=== PATIENT | female | born 1935 | race Caucasian/White ===

== ENCOUNTER 2019-06-12 09:08 | Inpatient (IN) ==
[2019-06-12] MEDS ORDERED: SALINE LOCK IV FLUID XX ONE (11:51)
[2019-06-12] MEDS ORDERED: TYLENOL PO PRN (11:57)
[2019-06-12] MEDS ORDERED: MIRALAX PO PRN (11:57)
[2019-06-12] MEDS ORDERED: ASTELIN NASAL SPRAY NAS PRN (11:57)
[2019-06-12] MEDS ORDERED: MERREM 500 MG in NS 50 ML IV SCH (14:00)
[2019-06-12 14:37] LABS: URINE SOURCE CLEAN CATCH
[2019-06-12 15:03] LABS: BILIRUBIN URINE NEGATIVE (NEGATIVE); BLOOD URINE NEGATIVE (NEGATIVE); COLOR YELLOW; GLUCOSE URINE NEGATIVE (NEGATIVE); KETONE URINE NEGATIVE (NEGATIVE); LEUKOCYTES URINE SMALL (NEGATIVE); NITRITE URINE NEGATIVE (NEGATIVE); PROTEIN URINE NEGATIVE (NEGATIVE); SP GRAVITY URINE 1.005; TURBIDITY URINE CLEAR (CLEAR); UROBILINOGEN URINE NORMAL (NORMAL)
[2019-06-12 15:04] LABS: UR EPITHELIAL CELLS <10 /HPF (<10); URINE BACTERIA NEGATIVE /HPF; URINE RBC <10 /HPF (<10); URINE WBC <10 /HPF (<10)
[2019-06-12] MEDS: NS 1,000 ML IV PRN (15:32)
[2019-06-12] MEDS: LOVENOX SUBQ SCH (15:33)
[2019-06-12] MEDS: MAXIPIME 2 GM in NS 100 ML IV SCH (18:25)
[2019-06-12] MEDS: PRAVACHOL PO SCH (20:26)
[2019-06-12] MEDS: KLOR-CON PO SCH (20:26)
[2019-06-12] MEDS: VITAMIN D PO SCH (20:27)
--- NOTE | 2019-06-12 21:12 | HISTORY AND PHYSICAL ---
INDICATION FOR ADMISSION: Multidrug resistant UTI. ADMITTING PHYSICIAN: Dr. Efrain Del Rio. ATTENDING PHYSICIAN: Dr. Efrain Del Rio. CONSULTING PHYSICIAN: Dr. Rosa Hernandez, Infectious Disease. HISTORY OF PRESENT ILLNESS: Ms. Rapp is a pleasant 84-year-old female, patient of mine, with past medical history consistent with generalized osteoarthritis, history of nonspecific elevated liver enzymes/transaminitis, diaphragmatic hernia, osteopenia, reflux, idiopathic peripheral neuropathy, atherosclerotic peripheral vascular disease, chronic venous hypertension, hypertension, dyslipidemia, hypothyroidism, and diabetes with renal involvement. She has a history of recurrent urinary tract infections manifested by lower abdominal urgency, frequency, back pain, and positive cultures. Over the past 3 to 4 months, she has been noted to have Escherichia coli which is ESBL positive in January 2019. The patient presented in early March 2019 complaining of dysuria and frequency. Urine culture was noted to be negative. Patient reporting urine urgency and frequency with 4+ bacteria in early June, culture returning as E coli positive, multidrug resistant, and resistant to the following agents: Ampicillin, sulbactam, cefazolin, ceftriaxone, cefuroxime, ciprofloxacin, gentamicin, Levaquin, tobramycin, and Bactrim. She was treated with Macrobid 100 mg twice daily and a repeat culture failed to demonstrate clearing; therefore, she is admitted to the internal medicine service for IV antibiotics and infectious disease consultative opinion. ALLERGIES: Levaquin, Nalfon, Pepcid, Reglan, and Tenex. MEDICATIONS ON ADMISSION: Include: 1. Atrovent nasal spray p.r.n. 2. Aspirin 81 mg once daily. 3. Vitamin D 2000 international units daily. 4. Senokot 8.6 two p.o. at bedtime p.r.n. 5. Pravachol 20 mg p.o. daily. 6. Exforge 5/160 one p.o. daily. 7. Loratadine 10 mg once daily. 8. Synthroid 100 mcg once daily. 9. Pantoprazole 40 mg once daily. 10. Klor-Con 20 mEq 1 p.o. b.i.d. 11. UTI prophylaxis per Urology. 12. Bactrim 400/80 one p.o. every other day. 13. Carafate 1 g t.i.d. 14. B12 supplement over the counter 500 mcg. FAMILY HISTORY: Father in 1975 secondary to blood clot. Mother in 2003, old age with congestive heart failure history. She is an only child. SOCIAL HISTORY: Status: Patient is after 49 years of marriage in 2009. She has 1 adult child, a daughter 55 years old, with no grandchildren. 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 She is a nonsmoker and a remote history of alcohol use; none at this time. Patient's last annual wellness visit noted to be January 2018 and last annual exam August 2018.. REVIEW OF SYSTEMS: A 12 point review of systems is unremarkable except that noted within the HPI above. Patient's last admission noted to be November 2017 for UTI with group B strep, elevated white blood cell count, and orthostatic hypotension, suggestive of SIRS. Prior to that, she was admitted in January 2013 for accelerated hypertension, chest pain. Historical urine cultures demonstrating ESBL positive E coli in June 2018, with multiple other cultures including Pseudomonas and Klebsiella. PHYSICAL EXAMINATION: VITAL SIGNS: On admission, blood pressure 149/64, respirations at 20, T-max at 98.4 degrees, weighing 181 pounds. HEENT: Normocephalic, atraumatic. Pupils are equal and reactive to light and accommodation. NECK: Soft and supple, without lymphadenopathy or bruits. CARDIOVASCULAR: Regular rate and rhythm, without murmurs, gallops, or rubs. LUNGS: Clear. ABDOMEN: Soft. EXTREMITIES: Benign, with the presence of chronic venous hypertension. NEUROLOGIC: Cranial nerves 2 through 12 are grossly intact. Patient is alert and oriented x3 without any cognitive deficiencies. LABORATORY: Obtained from this morning at office visit: There is a culture that is currently pending. No additional laboratory at this time. IMPRESSION: An 84-year-old with history of recurrent urinary tract infection, historical extended- spectrum beta lactamase positive as recently as January 2019 with Escherichia coli, and then a recent Escherichia coli culture which is multidrug resistant dated 06/04/2019, a copy of which will be provided and placed on the chart for infectious disease review. I have spoken with Infectious Disease who agrees, pending further evaluation of bladder with ultrasound and followup on urine culture which is outstanding, that initiation of meropenem 1 g intravenously every 8 hours is reasonable. Caution is to be exercised in asymptomatic positive cultures. This continues to be our clinical practice. I reiterated to the patient at the bedside this is why we essentially required that she come in and be evaluated for urinary tract infection with a urine specimen and a culture that often follows. Considering the multidrug resistant nature of this organism, failure to respond and persistence of symptoms, she is admitted to the Internal Medicine Clinic, started on intravenous broad-spectrum antibiotic coverage, with interval followup as discussed. Total time spent on the floor and at the bedside and on dictation: Approximately 45 minutes. cc: Efrain Del Rio DO
--- NOTE | 2019-06-12 22:17 | INFECTIOUS DISEASE CONSULT REP ---
DATE: 06/12/2019 CONCLUSION: The patient is admitted with a symptomatic urinary tract infection. RECOMMENDATIONS: I have discontinued meropenem and placed the patient instead on cefepime. A bladder scan was done as soon as the patient finished voiding and it turns out that she had a postvoid residual urine of 296 mL of urine. I should mention that since she came to the hospital, she had voided approximately 1700 mL of urine, but she still had a postvoid residual of 296 mL of urine. I suggest using vaginal estrogen cream and for the patient to sit for a long time on the toilet until she feels she thoroughly emptied her bladder. DISCUSSION: The patient tells me that when she has urgency to void and voiding frequently, she usually has a urinary tract infection. She further tells me that after the infection is treated, then the sense of urgency and frequency disappears. Today, when she came in, her urinalysis showed white cells, but no bacteria, and as mentioned above, the bladder scan showed a postvoid residual urine of 296 mL. The patient further tells me that when she sits on the toilet for a long time she feels she thoroughly empties her bladder. Also the patient said when she puts estrogen cream on her vagina she does not get urinary tract infections. PAST MEDICAL HISTORY/REVIEW OF SYSTEMS: Eyes/ears: The patient has decreased vision, but her hearing is good. Neck: No stiffness. Respiratory: No cough or shortness of breath. Cardiac: No chest pain or palpitations. Gastrointestinal: The patient has a problem with constipation. The patient does have gastroesophageal reflux. Genitourinary: See present illness. Bones/joints/muscles: The patient does have low back pain which seems to be independent of whether or not she has a urinary tract infection. She is not complaining of any muscle aches. Neurologic: No seizures. No recent loss of motor or sensory function. OBSTETRICAL/GYNECOLOGIC HISTORY: She is a 1, para 1, AB 0. She has had a hysterectomy. PREVIOUS HOSPITALIZATIONS AND OPERATIONS: She has had a labor and delivery, a hysterectomy, and a bladder tack. She has also had a cholecystectomy. MEDICAL DISEASES: Positive for diabetes mellitus, hyperlipidemia, hypothyroidism, and gastroesophageal reflux disease. INFECTIOUS DISEASE HISTORY: Positive for urinary tract infections which are symptomatic. FAMILY HISTORY: Positive for diabetes mellitus and cancer. SOCIAL HISTORY: The patient lives in [place]. She is a . She lives alone. She does not have any pets at home. She does not smoke cigarettes or abuse drugs. She occasionally drinks wine. ALLERGIES: The chart lists allergies to Levaquin, Reglan, steroids, and Pepcid. The Levaquin adverse reaction is anaphylaxis. HOME MEDICATIONS: Include the following: Exforge, Astelin spray, fluconazole, fluticasone, Synthroid, loratadine, Mobic, Protonix, and pravastatin. PHYSICAL EXAMINATION: Vital Signs: Temperature is 98.4 degrees, pulse 77, respirations 20, blood pressure 149/64. The patient is 5 feet 8 inches tall and weighs 181 pounds. General: This is an obese, but otherwise healthy-appearing, elderly female. She is in no acute distress. Head/eyes/ears/nose/throat: She can hear my spoken words and see near objects. There is no drainage from the nose or ears. Neck: No meningismus. Lungs: Clear to auscultation. Cardiovascular: Regular heart rate. Abdomen: Soft and nontender. There is no bilateral CVA tenderness either. Neurologic: The patient is alert. She ambulates without difficulty. Her memory as regarding her medical history is intact. She carries on a coherent conversation. Integument: No rash. Thank you for the consult. cc: MD Efrain Langley, DO GAIL
[2019-06-13] MEDS: MAXIPIME 2 GM in NS 100 ML IV SCH ×2 (05:06→18:06)
[2019-06-13] MEDS: SYNTHROID PO SCH (06:08)
[2019-06-13] MEDS: HYDROCHLOROTHIAZIDE PO SCH (10:13)
[2019-06-13] MEDS: KLOR-CON PO SCH ×2 (10:13→20:11)
[2019-06-13] MEDS: ASPIRIN PO SCH (10:13)
[2019-06-13] MEDS: CLARITIN PO SCH (10:13)
[2019-06-13] MEDS: MOBIC PO SCH (10:14)
[2019-06-13] MEDS: FLONASE NAS SCH (10:14)
[2019-06-13] MEDS: PROTONIX PO SCH (10:14)
[2019-06-13] MEDS: EXFORGE 5/160 PO SCH (10:15)
[2019-06-13] MEDS: LOVENOX SUBQ SCH (18:06)
[2019-06-13] MEDS: PRAVACHOL PO SCH (20:11)
[2019-06-13] MEDS: VITAMIN D PO SCH (20:11)
--- NOTE | 2019-06-13 20:44 | INFECTIOUS DISEASE PROGRESS NO ---
DATE: 06/13/2019 PRESENT ILLNESS: History of recurrent urinary tract infections. MEDICATIONS: Currently, the patient is on cefepime. PHYSICAL EXAMINATION: Vital Signs: Temperature is 97.6 degrees, pulse 69, respirations 16, blood pressure 139/64. General: This is a healthy-appearing, elderly female. She is in no acute distress. Head, Eyes, Ears, Nose, Throat: She can hear my spoken words and see near objects. She does not have any white coating on her tongue. Neck: No pain with movement. Lungs: Clear to auscultation. Cardiovascular: Heart rate is regular. Abdomen and flanks: The abdomen is soft. It is not tender and she does not have any bilateral CVA tenderness either. Neurologic: The patient is alert. She can ambulate without difficulty. There is no tremor. LAB AND X-RAY: There is no radiographic study. The patient's urine culture was negative at 24 hours. Urinalysis showed a small amount of white cells and no bacteria. ASSESSMENT AND PLAN: I discussed with the patient about her history of recurrent urinary tract infections. As I mentioned yesterday, she told me that if she sits for a prolonged time on the toilet, she feels that she totally empties her bladder. Yesterday, she sat on the toilet, but it was not for a prolonged time, and when we bladder scanned her, she had a post void residual of 296 mL. The patient also told me that when she used estrogen cream in the vaginal area, she did not have urinary tract infections either. Therefore, my suggestion is that the patient should try to sit down every 4 hours on the toilet, and she should sit for a prolonged time, and that way, hopefully she will not have a postvoid residual urine of any amount. Also, I think it would be best if she used estrogen cream vaginally. If the above works for the patient so that she does not have any recurrent urinary tract infections, she could possibly try to go every 6 hours without sitting on the toilet, but it would probably be best if she continued to do it every 4 hours. As regarding the vaginal estrogen cream, I am uncertain if she uses it, does she need to have a Pap smear taken vaginally. If she does need one, I do not know how often it should be. COMORBIDITIES: The patient is elderly. She does have diabetes, but from my understanding, her diabetes is very well controlled, even without medication, and it sounds like the postvoid residual we got last night at 296 only occurred because the patient did not sit long enough on the toilet, and that she really does not have urinary retention of any amount. cc: MD Efrain Langley, DO
[2019-06-14] MEDS: NS 1,000 ML IV PRN (01:44)
[2019-06-14] MEDS: SYNTHROID PO SCH (06:14)
[2019-06-14 07:54] VITALS: BP 148/69
[2019-06-14 08:27] LABS: AGAP 12; BUN 9 mg/dL (8-22); CALCIUM 8.1 mg/dL (8.8-10.2); CHLORIDE 99 mmol/L (98-107); COSMO 268; CREATININE 0.6 mg/dL (0.5-0.9); ESTIMATED GFR > 60; GLUCOSE 88 mg/dL (70-104); POTASSIUM 3.1 mmol/L (3.5-5.1); SODIUM 135 mmol/L (136-145); TCO2 24 mmol/L (25-35)
[2019-06-14 08:29] LABS: HEMATOCRIT 39.7 % (37.0-47.0); HEMOGLOBIN 13.5 g/dL (12.0-16.0); RBC 4.53 XMIL (4.2-5.4); WBC 4.66 X1000 (4.8-10.8)
[2019-06-14 08:30] LABS: BASO# 0.07 X1000 (0.0-0.2); BASO% 1.5 % (0.0-0.8); EOS# 0.38 X1000 (0.0-0.7); EOS% 8.2 % (0.0-10.0); LYMPH# 1.24 X1000 (1.2-3.4); LYMPH% 26.6 % (20.5-51.1); MCH 29.8 PG (27-31); MCV 87.6 FL (81-99); MONO# 0.73 X1000 (0.11-0.59); MONO% 15.7 % (1.7-9.3); MPV 10.1 FL (7.4-10.4); NEUT# 2.24 X1000 (1.4-6.5); PLT 232 X1000 (130-400); RDW 13.8 % (11.5-14.5)
[2019-06-14] MEDS: ASPIRIN PO SCH (09:14)
[2019-06-14] MEDS: HYDROCHLOROTHIAZIDE PO SCH (09:14)
[2019-06-14] MEDS: MOBIC PO SCH (09:15)
[2019-06-14] MEDS: KLOR-CON PO SCH (09:15)
[2019-06-14] MEDS: EXFORGE 5/160 PO SCH (09:15)
[2019-06-14] MEDS: PROTONIX PO SCH (09:15)
[2019-06-14] MEDS: CLARITIN PO SCH (09:16)
[2019-06-14] MEDS: FLONASE NAS SCH (09:17)
--- NOTE | 2019-06-15 00:36 | DISCHARGE SUMMARY ---
ADMISSION DATE: 06/12/2019 DISCHARGE DATE: 06/14/2019 DISCHARGE DIAGNOSES: 1. Atonic bladder. 2. Hypokalemia. 3. Personal history of recurrent urinary tract infection. 4. Urinary retention with incomplete bladder emptying. CONSULTATIONS: Including Infectious Disease for history of ESBL positive E. coli. PROCEDURES: Postvoid residual of 296 mL suggestive of atonic bladder with incomplete emptying. HOSPITAL COURSE: Ms. Rapp was admitted from the Internal Medicine Clinic for a presumptive UTI with recent history of E coli positive culture with positive ESBL findings. She had been treated earlier in the week with incomplete resolution of urinary tract infection and multidrug resistant findings therefore she was admitted to the internal medicine service, started on broad- spectrum antibiotics and Infectious Disease was consulted. Her urine culture from the clinic returned as negative. IV antibiotics were stopped. Patient was instructed that this was most consistent with urinary retention with incomplete bladder emptying and that she would be a good candidate for self-catheterization. DISPOSITION: No ongoing antibiotics will be continued at the time of discharge. We will be helping the patient with arranging for followup with urology in [place]. She reports the time of discharge that she has historically been advised that self-catheterization would likely be in her detention best interest and now based on this hospitalization difficulty with complete voiding she is giving this more careful consideration. DISCHARGE MEDICATIONS: Tylenol [id number] as needed, Exforge hydrochlorothiazide 5/160/12.5 once daily, aspirin 81 mg once daily, Astelin nasal spray as directed, vitamin D 2000 international units once daily, Flonase as directed, levothyroxine 125 mcg once daily, loratadine 10 mg once daily, Meloxicam 15 mg once daily, Protonix 40 mg once daily, MiraLAX as directed, potassium chloride 20 mEq b.i.d., Pravachol 20 mg once daily. Patient is discharged to home with interval follow up no later than 7 days from today to discuss findings and assist patient with urological referral. No instruction with regards to self- catheterization is provided at this time. We will continue to follow clinically in this regard. Total time spent on the floor and at the bedside in discussion and preparing discharge paperwork approximately 30 minutes. cc: Efrain Del Rio DO
== END 2019-06-14 09:59 | disposition home or self-care (01) | DRG 696 ==
LOC: DIRADM 09:08 → 3N 12:56
PROVIDERS: ADMIT Internal Medicine; ATTEND Internal Medicine